=== PATIENT | male | born 1950 | race American Indian/Alaskan Native ===

== ENCOUNTER 2017-04-25 17:40 | Emergency (ER) | payer OTHER ==
--- NOTE | 2017-04-25 17:45 | ED PDOC ---
Arrival/HPI - General Time Seen by Provider: 04/25/17 17:43 Historian: Patient - History of Present Illness Narrative History of Present Illness (Text): 04/25/17 17:43 66 y/o male, pmh including htn, nkda, c/o q-tip stuck in the left ear x 2 days with pain. Pt. stated that he clean the ear with q-tip and the cotton stuck in the left ear canal, no dizziness, admits pain and discomfort in the lt. ear, no night sweat, no rash, no other medical or psychological complaints. Family/Social History - Physician Review Nursing Documentation Reviewed: Yes Family/Social History: Unknown Family HX Allergies/Home Meds Allergies/Adverse Reactions: Allergies No Known Allergies Allergy (Verified 04/25/17 17:50) Home Medications: Home Meds Medication Instructions Recorded Confirmed Losartan [Cozaar] 25 mg PO DAILY 04/25/17 04/25/17 Review of Systems - Review of Systems Constitutional: absent: Fatigue, Fevers Eyes: absent: Vision Changes ENT: Other (lt. ear pain). absent: Hearing Changes Respiratory: absent: SOB, Cough Cardiovascular: absent: Chest Pain Gastrointestinal: absent: Abdominal Pain, Diarrhea, Nausea, Vomiting Musculoskeletal: absent: Arthralgias, Back Pain Skin: absent: Rash, Pruritis Neurological: absent: Headache, Dizziness Psychiatric: absent: Anxiety, Depression Physical Exam Vital Signs Reviewed: Yes Vital Signs Temp Pulse Resp BP Pulse Ox 04/25/17 17:51 98.5 F 67 16 121/72 97 Temperature: Afebrile Blood Pressure: Normal Pulse: Regular Respiratory Rate: Normal Appearance: Positive for: Well-Appearing, Non-Toxic, Comfortable Pain Distress: Mild Mental Status: Positive for: Alert and Oriented X 3 - Systems Exam Head: Present: Atraumatic, Normocephalic Pupils: Present: PERRL Extroacular Muscles: Present: EOMI Conjunctiva: Present: Normal Ears: Present: Other (Ears: Lt. TM unable to visualize due to the white cotton packing noted, rt. TM lynn color and intact, lt. auditory canal is erythematous , rt. auditory canal is non-erythematous, no mastoid tenderness. ) Mouth: Present: Moist Mucous Membranes Nose (Internal): Present: Normal Inspection, No Active Bleeding. No: Rhinorrhea , Septal Hematoma, Epistaxis Neck: Present: Normal Range of Motion, Trachea Midline. No: Meningeal Signs, MIDLINE TENDERNESS, Paraspinal Tenderness, Lymphadenopathy Respiratory/Chest: Present: Clear to Auscultation, Good Air Exchange. No: Respiratory Distress, Accessory Muscle Use Cardiovascular: Present: Regular Rate and Rhythm, Normal S1, S2. No: Murmurs Abdomen: Present: Normal Bowel Sounds. No: Tenderness, Distention, Peritoneal Signs Back: Present: Normal Inspection Upper Extremity: Present: Normal Inspection. No: Cyanosis, Edema Lower Extremity: Present: Normal Inspection. No: Edema Neurological: Present: GCS=15, CN II-XII Intact, Speech Normal Skin: Present: Warm, Dry, Normal Color. No: Rashes Psychiatric: Present: Alert, Oriented x 3, Normal Insight, Normal Concentration Medical Decision Making ED Course and Treatment: 04/25/17 17:44 -lt. ear q-tip removed under direct observation with the otoscope, remove with the alligator forcep with 1 try, rexamined of the ears show the following: -Ears: bilateral TMs lynn color and intact, lt. auditory canal is erythematous , rt. auditory canal is non-erythematous, bilateral auditory with no abrasion/ laceration, foreign bodies completely removed bilaterally, no mastoid tendeness 04/25/17 18:21 -Pain resolved. -Discharge home with ciprodex otic, tylenol, keep the left ear dry and clean for 7 days, follow up with your own pmd and ENT within 2 days, return to the ER for any new or worsening signs or symptoms. - PA / NURSING ADMIN / Resident Statement MD/DO has reviewed & agrees with the documentation as recorded. Disposition/Present on Arrival - Present on Arrival Any Indicators Present on Arrival: No History of DVT/PE: No History of Uncontrolled Diabetes: No Urinary Catheter: No History of Decub. Ulcer: No - Disposition Have Diagnosis and Disposition been Completed?: Yes Diagnosis: Hx of retained foreign body fully removed Disposition: HOME/ ROUTINE Disposition Time: 18:25 Patient Plan: Discharge Condition: GOOD Additional Instructions: -Discharge home with ciprodex otic, tylenol, keep the left ear dry and clean for 7 days, follow up with your own pmd and ENT within 2 days, return to the ER for any new or worsening signs or symptoms. Prescriptions: Acetaminophen [Tylenol 325mg tab] 2 tab PO QID PRN #30 tab PRN Reason: Other Ciprofloxacin/Dexamethasone [Ciprodex Otic] 4 drop BID #1 bottle Referrals: Guero Perez DO [Staff Provider] - Follow up with primary Forms: WORK NOTE
[2017-04-25 17:55] VITALS: BP 121/72; PULSE 67; RESP 16; TEMP 98.5; O2SAT 97
== END 2017-04-25 19:00 | disposition home or self-care (01) ==
LOC: ED 17:40
DX: T16.2XXA Foreign body in left ear, initial encounter (principal); X58.XXXA Exposure to other specified factors, initial encounter